=== PATIENT | male | born 1950 | race Caucasian/White ===

== ENCOUNTER 2020-05-13 12:58 | Emergency (ER) | payer MEDICARE, BC ==
[~2020-05-13] VITALS: Ht 180.3 cm; Wt 118.2 kg
[2020-05-13 13:14] VITALS: BP 137/91; Ht 180.3 cm; Wt 118.2 kg
[2020-05-13] MEDS ORDERED: ASPIRIN81 MG PO (13:16)
[2020-05-13] MEDS ORDERED: METOPROLOL TART25 MG PO (13:16)
[2020-05-13] MEDS ORDERED: LISINOPRIL5 MG PO (13:16)
[2020-05-13 13:31] LABS: BASOPHILS 0.1 % (0-2); EOSINOPHILS 0 % (0-7); HEMATOCRIT 45.8 % (42.0-54.0); HEMOGLOBIN 15.7 g/dL (13.5-17.5); IMMATURE GRANULOCYTES 0.4 % (0-5); LYMPHOCYTE ABS# 0.36 10x3/uL (1.32-3.57); LYMPHOCYTES 3.8 % (15-50); MCH 33.3 pg (26.0-34.0); MCHC 34.3 g/dL (31.0-37.0); MEAN PLATELET VOLUME 9.2 fL (7.4-10.4); MONOCYTES 7.5 % (2-11); NEUTROPHIL ABS# 8.43 10x3/uL (1.78-5.38); NEUTROPHILS 88.2 % (40-80); PLATELET COUNT 168 10x3/uL (130-400); RBC 4.72 10x6/uL (4.20-6.10); RDW 12.6 % (11.5-14.5); WBC 9.6 10x3/uL (4.8-10.8)
[2020-05-13 13:39] LABS: CALC OSMOLALITY 273 mosm/kg (275-300); CALCIUM 9.3 mg/dL (8.5-10.1); CARBON DIOXIDE 24.9 mmol/L (21.0-32.0); CHLORIDE - SERUM 98 mmol/L (98-107); CREATININE - SERUM 1.2 mg/dL (0.6-1.3); GLUCOSE 141 mg/dL (74-106); POTASSIUM - SERUM 3.6 mmol/L (3.5-5.1); SODIUM 135 mmol/L (136-145); UREA NITROGEN 19 mg/dL (7-18); eGFR NON AFRICAN AMERICAN 63 mL/min (90-120)
[2020-05-13 13:48] LABS: ALBUMIN 3.5 g/dL (3.4-5.0); ALKALINE PHOSPHATASE 119 U/L (30-120); ALT (SGPT) 31 U/L (10-68); AMYLASE - SERUM 25 U/L (25-115); BILIRUBIN - TOTAL 1.26 mg/dL (0.2-1.3); LIPASE 52 U/L (73-393); PROTEIN - SERUM 7.3 g/dL (6.4-8.2)
[2020-05-13 13:49] LABS: TROPONIN-I < 0.017 ng/mL (0.000-0.060)
[2020-05-13 14:01] LABS: APTT 27.8 SECONDS (22.8-39.4); INR 1.05 (0.85-1.17); PROTIME 12.7 SECONDS (11.6-15.0)
[2020-05-13 14:14] LABS: CKMB 0.7 U/L (0.0-3.6); CREATINE KINASE 73 UL (21-232)
[2020-05-13 15:59] LABS: BILIRUBIN NEGATIVE (NEGATIVE); KETONE NEGATIVE (NEGATIVE); NITRITE NEGATIVE (NEGATIVE); UROBILINOGEN NORMAL mg/dL (< 2)
[2020-05-13 16:00] LABS: BACTERIA OCC HPF (NONE SEEN); WHITE CELLS - URINE OCC HPF (0-1)
[2020-05-13] MEDS ORDERED: FLORASTOR250 MG PO (16:04)
[2020-05-13] MEDS ORDERED: XIFAXAN200 MG PO (16:06)
[2020-05-13] MEDS ORDERED: LEVSIN/ANASP0.125 MG PO (16:07)
[2020-05-13] MEDS ORDERED: LEVAQUIN750 MG PO (16:32)
== END 2020-05-13 16:40 | disposition home or self-care (01) ==
LOC: D.ER 12:58
PROVIDERS: Family Medicine
DX: R10.11 Right upper quadrant pain (principal); K52.9 Noninfective gastroenteritis and colitis, unspecified; I10 Essential (primary) hypertension; Z95.5 Presence of coronary angioplasty implant and graft; Z95.1 Presence of aortocoronary bypass graft